=== PATIENT | female | born 1995 | race Caucasian/White ===

== ENCOUNTER 2016-06-25 22:07 | Emergency (ER) | payer OTHER ==
[2016-06-25] MEDS ORDERED: NS 1,000 ML IV ONE (22:23)
[2016-06-25 22:34] LABS: URINE MICRO REVIEW NEEDED? NO; URINE SOURCE CLEAN CATCH
--- NOTE | 2016-06-25 22:36 | PROVIDER DOCUMENTATION ---
HPI-General Adult <Rommel Rices M - Last Filed: 06/25/16 23:21> - General Source: patient - History of Present Illness -Gen Adult Nature of Presenting Problems: 20 Y/O F presents to ED with General c/o. Pt was treated 2 weeks ago for sinusitis, treated with amoxicillin finished last week. 6 days ago pt complained of onset of epigastric pain with V/N, and poor appetite, States no BM for 4 days. Rash with no itch on chest and torso. Denies sore throat, chills at home fever of 101. Pt began menstrual cycle yesterday. 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 Location of Pain/Injury: reports: chest, upper extremity, abdomen. denies: face Pain Radiation: reports: no radiation Quality of Pain: reports: aching Severity: reports: moderate Onset/Duration: reports: 6 days ago Timing: reports: still present Context/Activities at Onset: reports: none Associated Symptoms: reports: constipation, fever/chills, loss of appetite, nausea, rash, vomiting. denies: back/neck pain, chest pain, cough, diarrhea Similar Symptoms Previously?: No Recently seen or treated by another doctor?: Yes (2 weeks prior ) <Valerie Sears - Last Filed: 06/26/16 00:08> - General Chief Complaint: General Adult Stated Complaint: FEVER, RASH, NAUSEA/VOMITING Time Seen by Provider: 06/25/16 22:18 Allergies/Adverse Reactions: Patient Allergies Allergy/AdvReac Type Severity Reaction Status Date / Time No Known Allergies Allergy Verified 06/25/16 23:12 Home Medications: Home Medication List Medication Instructions Recorded Confirmed Last Taken Type Ciprofloxacin HCl [Cipro] 500 mg PO BID #10 tablet 06/25/16 Unknown Rx Ondansetron Odt [Zofran 4 mg Odt] 4 mg PO Q6H PRN PRN #10 tablet 06/25/16 Unknown Rx Pantoprazole [Protonix] 40 mg PO DAILY@0700 #30 tablet 06/25/16 Unknown Rx Review of Systems - Adult - REVIEW OF SYSTEMS - ADULT Constitutional: reports: chills, fever Eyes: reports: no symptoms reported Ears, Nose, Mouth & Throat: denies: ear discharge, throat pain Cardiovascular: denies: chest pain Respiratory: reports: cough. denies: shortness of breath Gastrointestinal: reports: abdominal pain, constipation, nausea, poor appetite, vomiting. denies: diarrhea Genitourinary: reports: no symptoms reported Musculoskeletal: denies: back pain, muscle aches Integumentary: reports: rash Neurological: denies: dizziness/vertigo, headache/migraines Psychiatric: reports: no symptoms reported Endocrine: reports: no symptoms reported Hematologic/Lymphatic: reports: no symptoms reported Allergic/Immunologic: reports: no symptoms reported All Other Systems: Reviewed and Negative <RobinsonValerie - Last Filed: 06/26/16 00:08> Past History - Adult - PAST MEDICAL HISTORY-ADULT Review of Records: reports: Old Records Reviewed, Nursing Assessment Review, Medications Reviewed, Social history reviewed & non-contributory. - SOCIAL HISTORY Substance Use: none/never Alcohol Use Frequency: never Living Situation: family <RobinsonValerie Last Filed: 06/26/16 00:08> Physical Exam-General - PHYSICAL EXAM-ADULT Initial Vital Signs Reviewed: Yes - CONSTITUTIONAL General Appearance: alert, no apparent distress - EYES Eyes: PERRL/EOMI, pink conjunctivae, fundi clear, no AV nicking - HEAD, EARS, NOSE, MOUTH & THROAT HENMT: negative: moist mucous membranes (dry), pharynx normal (red) - NECK Neck: non-tender, full range of motion, supple - RESPIRATORY Respiratory: chest non-tender, lungs clear, normal breath sounds - CARDIOVASCULAR Cardiovascular: tachycardia - GASTROINTESTINAL (ABDOMEN) Abdominal Exam: tenderness (mild epigastric, LUQ). negative: distended, guarding, rigid, rebound - LYMPHATIC Lymphatic: no adenopathy - MUSCULOSKELETAL Back Exam: normal inspection, no CVA tenderness, no vertebral tenderness Extremity: normal range of motion, non-tender, normal gait - SKIN Integumentary: rash (fine micro, Upper extremity not on face) - NEUROLOGIC Neurologic: crocheter II-XII nml as tested, grossly normal - PSYCHIATRIC Psych/Mental Status: normal mood/affect, normal thought content, normal thought process, oriented x 3 <RobinsonValerie - Last Filed: 06/26/16 00:08> Progress - REASSESSMENT Reassessment #1 Time Reassessed: 23:21 (pt aware of mono dx) Status: improving - XRAY 1 XRAY Study: Chest (nad), Abdomen (constipation) <Rigo Rice M - Last Filed: 06/25/16 23:21> - PLAN OF CARE/RESULTS Progress/Plan/Lab Results: Laboratory Tests 06/25/16 06/25/16 06/25/16 22:19 22:19 22:19 WBC 11.68 H RBC 4.45 Hgb 11.5 L Hct 34.5 L MCV 77.5 L MCH 25.8 L MCHC 33.3 RDW Std Deviation 14.2 Plt Count 254 MPV 10.4 Immature Gran % (Auto) 0.7 H Neut % (Auto) 26.3 L Lymph % (Auto) 56.8 H Pettis % (Auto) 12.0 H Eos % (Auto) 0.2 Baso % (Auto) 4.0 H Immature Gran # (Auto) 0.08 H Neut # (Auto) 3.07 Lymph # (Auto) 6.64 H Pettis # (Auto) 1.40 H Eos # (Auto) 0.02 Baso # (Auto) 0.47 H Sodium 131 L Potassium 3.6 Chloride 93 L Carbon Dioxide 23 L Anion Gap 15 BUN 9 Creatinine 1.0 H Estimated GFR/1.73 m2 > 60 BUN/Creatinine Ratio 9 Glucose 92 Calculated Osmolality 261 Calcium 9.1 Total Bilirubin 1.66 H AST 225 H ALT 224 H Alkaline Phosphatase 198 H Total Protein 7.8 Albumin 4.1 Globulin 3.7 Albumin/Globulin Ratio 1.1 Amylase 39 Lipase 34 Urine Source Urine Color Urine Turbidity Urine pH Ur Specific [place] Urine Protein Ur Glucose (Stick) Ur Ketones (Stick) Urine Blood Urine Nitrite Urine Bilirubin Urobilinogen Dipstick Urine Leukocytes Urine WBC (Auto) Urine RBC (Auto) U Epithel Cells (Auto) Urine Bacteria (Auto) Urine Test Monoscreen POSITIVE H 06/25/16 06/25/16 22:19 22:19 WBC RBC Hgb Hct MCV MCH MCHC RDW Std Deviation Plt Count MPV Immature Gran % (Auto) Neut % (Auto) Lymph % (Auto) Pettis % (Auto) Eos % (Auto) Baso % (Auto) Immature Gran # (Auto) Neut # (Auto) Lymph # (Auto) Pettis # (Auto) Eos # (Auto) Baso # (Auto) Sodium Potassium Chloride Carbon Dioxide Anion Gap BUN Creatinine Estimated GFR/1.73 m2 BUN/Creatinine Ratio Glucose Calculated Osmolality Calcium Total Bilirubin AST ALT Alkaline Phosphatase Total Protein Albumin Globulin Albumin/Globulin Ratio Amylase Lipase Urine Source CLEAN CATCH Urine Color YELLOW Urine Turbidity HAZY Urine pH 6.0 Ur Specific [place] 1.027 Urine Protein 50 A Ur Glucose (Stick) NEGATIVE Ur Ketones (Stick) 10 A Urine Blood MODERATE A Urine Nitrite NEGATIVE Urine Bilirubin SMALL A Urobilinogen Dipstick 6 A Urine Leukocytes SMALL A Urine WBC (Auto) 10-20 A Urine RBC (Auto) <10 U Epithel Cells (Auto) >10 A Urine Bacteria (Auto) 2+ Urine Test NEGATIVE Monoscreen Orders Category Date Time Status NPO Diet 06/25/16 22:16 Active FLAT/UPRIGHT ABD/1 VIEW CHEST [RAD] Stat Exams 06/25/16 22:22 Taken AMYLASE [CHEM] Stat Lab 06/25/16 22:19 Completed CBC WITH ELECTRONIC DIFF [HEME] Stat Lab 06/25/16 22:19 Completed COMPREHENSIVE METABOLIC PANEL [CHEM] Stat Lab 06/25/16 22:19 Completed DIRECT STREP Stat Lab 06/25/16 22:19 Completed LIPASE [CHEM] Stat Lab 06/25/16 22:19 Completed MONO SCREEN [SERO] Stat Lab 06/25/16 22:19 Completed TEST-URINE [PREG] Stat Lab 06/25/16 22:19 Completed URINALYSIS W/POSS RFLX CULT [URINALYSIS] Stat Lab 06/25/16 22:19 Completed URINE CULTURE [RM] Routine Lab 06/25/16 23:18 Received 0.9% Sodium Chloride Inj [Ns] 1,000 ml Med 06/25/16 22:23 Active IV 999 mls/hr Vital Signs - 24 hr 06/25/16 22:12 Temperature 100.0 F H Pulse Rate 124 H Respiratory 22 Rate Blood Pressure 128/71 Pt had a complete gall bladder workup in January, negative for gallbladder disease. <Valerie Sears - Last Filed: 06/26/16 00:08> Departure - Departure Time of Disposition Order: 23:23 Certified Medical Emergency: Emergent <Rigo Rice - Last Filed: 06/25/16 23:21> - Departure Time of Disposition Order: 23:28 Certified Medical Emergency: Emergent <Valerie Sears - Last Filed: 06/26/16 00:08> - Departure DIAGNOSIS: Mononucleosis UTI (urinary tract infection) Qualifiers: Urinary tract infection type: site unspecified Hematuria presence: without hematuria Qualified Code(s): N39.0 - Urinary tract infection, site not specified Constipation Qualifiers: Constipation type: unspecified constipation type Qualified Code(s): K59.00 - Constipation, unspecified Vomiting Qualifiers: Vomiting type: unspecified Vomiting Intractability: unspecified Nausea presence : unspecified Qualified Code(s): R11.10 - Vomiting, unspecified Disposition: HOME 01 Condition: Stable Additional Instructions: ED Follow Up Instructions:off work for 2 days You have been treated by a care provider in the Emergency Department. These instructions are being provided to you so you can have an understanding of how to care for yourself upon discharge. Upon discharge from the Emergency Department, you are responsible for making arrangements for follow-up care by a physician of your choice. Take all prescribed medications as directed. Return to the Emergency Department immediately for any new or worsening symptoms. You may call the Physician Referral phone number at [phone] to obtain a list of Physicians who are taking new patients. Prescriptions: Ciprofloxacin HCl [Cipro] 500 mg PO BID #10 tablet Pantoprazole [Protonix] 40 mg PO DAILY@0700 #30 tablet Ondansetron Odt [Zofran 4 mg Odt] 4 mg PO Q6H PRN PRN #10 tablet PRN Reason: Nausea And Vomiting Referrals: None,PCP [Primary Care Provider] - Hamlet Ross MD [STAFF PHYSICIAN] - Forms: Return to School/Parent Work Instructions: Constipation, Adult, [id number], Infectious Mononucleosis, Easy -to-Read, Nausea and Vomiting, [id number], Urinary Tract Infection, Easy-to- Read Attestation - Scribe Verification/Attestation Scribe:: Valerie Sears Acting as Scribe for:: Rigo Rice Scribe documention review:: This chart was documented by a scribe and accurately reflects the service the provider performed and the decisions made by the provider. <Valerie Sears - Last Filed: 06/26/16 00:08> Physician Attestation
[2016-06-25 22:37] LABS: EOS# 0.02 X1000 (0.0-0.7); EOS% 0.2 % (0.0-10.0); HEMATOCRIT 34.5 % (37.0-47.0); HEMOGLOBIN 11.5 g/dL (12.0-16.0); IMM GRAN# 0.08 X1000 (0.0-0.04); IMM GRAN% 0.7 % (0.0-0.5); LYMPH# 6.64 X1000 (1.2-3.4); LYMPH% 56.8 % (20.5-51.1); MANUAL DIFF NEEDED? NO; MCH 25.8 PG (27-31); MCHC 33.3 g/dL (33-37); MCV 77.5 FL (81-99); MPV 10.4 FL (7.4-10.4); NEUT% 26.3 % (42.2-75.2); PLT 254 X1000 (130-400); RBC 4.45 XMIL (4.2-5.4)
[2016-06-25 22:38] LABS: BILIRUBIN URINE SMALL (NEGATIVE); BLOOD URINE MODERATE (NEGATIVE); COLOR YELLOW; GLUCOSE URINE NEGATIVE (NEGATIVE); LEUKOCYTES URINE SMALL (NEGATIVE); NITRITE URINE NEGATIVE (NEGATIVE); PROTEIN URINE 50 mg/dL (NEGATIVE); SP GRAVITY URINE 1.027; TURBIDITY URINE HAZY (CLEAR); UR EPITHELIAL CELLS >10 /HPF (<10); URINE BACTERIA 2+ /HPF; URINE CULTURE NEEDED? YES; URINE RBC <10 /HPF (<10); UROBILINOGEN URINE 6 mg/dL (NORMAL)
[2016-06-25 22:55] LABS: AGAP 15; ALBUMIN 4.1 g/dL (3.5-5.0); ALKALINE PHOSPHATASE 198 U/L (32-104); AMYLASE 39 U/L (20-200); BUN 9 mg/dL (8-22); CALCIUM 9.1 mg/dL (8.8-10.2); CHLORIDE 93 mmol/L (98-107); COSMO 261; GOT 225 U/L (10-30); GPT 224 U/L (10-36); LIPASE 34 U/L (13-60); POTASSIUM 3.6 mmol/L (3.5-5.1); SODIUM 131 mmol/L (136-145); TCO2 23 mmol/L (25-35); TOTAL BILIRUBIN 1.66 mg/dL (0.20-1.00); TOTAL PROTEIN 7.8 g/dL (6.3-8.3)
[2016-06-25] MEDS ORDERED: ROCEPHIN 1 GM/NS 50 ML IV ONE (23:19)
[2016-06-25] MEDS ORDERED: PROTONIX IV ONE (23:20)
[2016-06-25] MEDS ORDERED: ZOFRAN IV ONE (23:20)
[2016-06-25] MEDS ORDERED: SODIUM CHLORIDE 0.9% INJ ONE (23:20)
[2016-06-26 00:49] VITALS: BP 119/69
--- NOTE | 2016-06-26 07:19 | Diag Imaging Result Document ---
PROCEDURE NAME: FLAT/UPRIGHT ABD/1 VIEW CHEST - 06/25/2016 FLAT AND UPRIGHT AND CHEST, THREE VIEWS: FINDINGS: The lungs are well expanded. The heart is not enlarged. No pneumonia. No free air beneath the diaphragm. There is stool throughout the colon. The bowel loops are not dilated. No organomegaly. No abnormal abdominal calcifications. Mild scoliosis. IMPRESSION: Constipation.
== END 2016-06-26 00:50 | disposition home or self-care (01) ==
LOC: ED 22:07
DX: B27.90 Infectious mononucleosis, unspecified without complication (principal); N39.0 Urinary tract infection, site not specified; K59.00 Constipation, unspecified; R11.2 Nausea with vomiting, unspecified; R10.13 Epigastric pain; R21 Rash and other nonspecific skin eruption; R50.9 Fever, unspecified; R05 Cough; R10.816 Epigastric abdominal tenderness; R10.12 Left upper quadrant pain
CPT/HCPCS: 74022; 80053; 80074; 81001; 81025; 82150; 83690; 85025; 86308; 87081; 87088; 87430; C9113; J0696; J2405; J7030; S0164